=== PATIENT | male | born 2000 | race Caucasian/White ===

== ENCOUNTER 2025-03-29 15:14 | Emergency (ER) | payer SELFPAY ==
[~2025-03-29] VITALS: Ht 185.4 cm; Wt 73.0 kg
[2025-03-29 15:17] VITALS: O2SAT 100
[2025-03-29] MEDS: ONDANSETRON HCL 4MG/2ML INJ IV ONE (15:58)
[2025-03-29] MEDS: SODIUM CHLORIDE 0.9% 1,000 ML IV ONE (15:59)
[2025-03-29] MEDS: ACETAMINOPHEN 325MG TABLET PO ONE (15:59)
[2025-03-29 16:06] LABS: BASOPHILS % 0.3 % (0.0-2.0); EOSINOPHILS % 0.2 % (0.0-5.0); HEMATOCRIT. 38.4 % (42.0-52.0); HEMOGLOBIN. 13.3 g/dL (14.0-18.0); LYMPHOCYTES % 11.0 % (20.0-50.0); MEAN PLATELET VOLUME 8.0 fl (7.4-10.4); MONOCYTES % 3.9 % (2.0-8.0); NEUTROPHILS % 84.6 % (40.0-76.0); PLATELET 296 x1000/uL (130-400); RED BLOOD CELL COUNT 4.24 mill/uL (4.7-6.1); RED CELL DISTRIBUTION WIDTH 13.3 % (11.6-14.6)
[2025-03-29 16:09] LABS: CLARITY URINE CLEAR (CLEAR); COLOR URINE YELLOW (YELLOW); GLUCOSE URINE NEGATIVE (NEGATIVE); KETONES URINE 1+ (NEGATIVE); LEUKOCYTE ESTERASE URINE NEGATIVE (NEGATIVE); NITRITE URINE NEGATIVE (NEGATIVE); OCCULT BLOOD URINE NEGATIVE (NEGATIVE); PH URINE 6.0 (4.5-8.0); PROTEIN URINE NEGATIVE (NEGATIVE); SPECIFIC GRAVITY URINE 1.007 (1.005-1.030); UROBILINOGEN URINE 0.2 E.U./dL (0.2-1.0)
[2025-03-29 16:19] LABS: ETHANOL BLOOD < 10 mg/dL (<10); PROTEIN TOTAL 8.1 g/dL (6.0-8.3)
[2025-03-29 16:20] LABS: ASPARTATE AMINOTRANSFERASE 27 IU/L (<34)
[2025-03-29 16:21] LABS: BILIRUBIN DIRECT 0.3 mg/dL (<=3.0); BILIRUBIN TOTAL 1.0 mg/dL (0.1-1.0); CREATININE 1.0 mg/dL (0.6-1.3); UREA NITROGEN BLOOD 9 mg/dL (9-23)
[2025-03-29] MEDS: DOCUSATE SODIUM 100MG CAPSULE PO SCH (18:37)
[2025-03-29] MEDS: MAGNESIUM HYDROXIDE 400MG/5ML 30ML UDC PO SCH (18:38)
[2025-03-29 21:22] VITALS: BP 124/61; PULSE 64; RESP 16; TEMP 36.9; O2SAT 100
[2025-03-29] MEDS ORDERED: ACET-2708 PO (21:22)
[2025-03-29] MEDS ORDERED: ONDA-239 SL (21:22)
[2025-03-29] MEDS ORDERED: DOCU-422 MT (21:22)
== END 2025-03-29 21:36 | disposition home or self-care (01) ==
LOC: ER 15:14
DX: K59.09 Other constipation (principal); R11.2 Nausea with vomiting, unspecified; R10.84 Generalized abdominal pain
CPT/HCPCS: 80076; 80048; 81003; 80320; 83605; 83690; 85025; 36415; 74018; 74176; 96374; 99285; J2405; J7030; G0480